=== PATIENT | male | born 2005 | race Caucasian/White ===

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

== ENCOUNTER 2023-01-01 06:00 | Outpatient (RCR) | payer MEDICAID, SELFPAY | END 2023-01-30 23:59 | disposition home or self-care (01) | LOC: SPO 06:00 | PROVIDERS: PCP Family Medicine; Visit Provider Nurse Practitioner | DX: R27.0 Ataxia, unspecified (principal) | CPT/HCPCS: 97110; 97530; 97535 ==

== ENCOUNTER 2023-01-31 06:00 | Outpatient (RCR) | payer MEDICAID, SELFPAY | END 2023-03-02 23:59 | disposition home or self-care (01) | LOC: SPO 06:00 | PROVIDERS: PCP Family Medicine; Visit Provider Nurse Practitioner | DX: R27.0 Ataxia, unspecified (principal) | CPT/HCPCS: 97110; 97530 ==

== ENCOUNTER 2023-03-10 16:21 | Outpatient (RCR) | payer MEDICAID, SELFPAY | END 2023-04-01 23:59 | disposition home or self-care (01) | LOC: SPO 16:21 | PROVIDERS: PCP Family Medicine; Visit Provider Nurse Practitioner | DX: R27.0 Ataxia, unspecified (principal) | CPT/HCPCS: 97110; 97530; 97535 ==

== ENCOUNTER 2023-04-02 06:00 | Outpatient (RCR) | payer MEDICAID, SELFPAY | END 2023-05-02 23:59 | disposition home or self-care (01) | LOC: SPO 06:00 | PROVIDERS: PCP Family Medicine; Visit Provider Nurse Practitioner | DX: R27.0 Ataxia, unspecified (principal) | CPT/HCPCS: 97110; 97530; 97535 ==

== ENCOUNTER 2023-05-03 06:00 | Outpatient (RCR) | payer MEDICAID, SELFPAY | END 2023-06-02 23:59 | disposition home or self-care (01) | LOC: SPO 06:00 | PROVIDERS: Visit Provider Nurse Practitioner | DX: R27.0 Ataxia, unspecified (principal); R29.898 Other symptoms and signs involving the musculoskeletal system | CPT/HCPCS: 97110; 97530; 97535 ==

== ENCOUNTER 2023-05-23 06:00 | Outpatient (RCR) | payer MEDICAID, SELFPAY | END 2023-06-02 23:59 | disposition home or self-care (01) | LOC: TST 06:00 | PROVIDERS: Visit Provider Family Medicine | DX: F81.89 Other developmental disorders of scholastic skills (principal); F80.89 Other developmental disorders of speech and language | CPT/HCPCS: 92523 ==

== ENCOUNTER 2023-06-03 06:00 | Outpatient (RCR) | payer MEDICAID, SELFPAY | END 2023-07-02 23:59 | disposition home or self-care (01) | LOC: TST 06:00 | PROVIDERS: Visit Provider Family Medicine | DX: F81.89 Other developmental disorders of scholastic skills (principal) | CPT/HCPCS: 92507 ==

== ENCOUNTER 2023-06-03 06:00 | Outpatient (RCR) | payer MEDICAID, SELFPAY | END 2023-07-02 23:59 | disposition home or self-care (01) | LOC: SPO 06:00 | PROVIDERS: Visit Provider Nurse Practitioner | DX: G80.8 Other cerebral palsy (principal); R26.89 Other abnormalities of gait and mobility | CPT/HCPCS: 97110; 97530 ==

== ENCOUNTER 2023-07-03 06:00 | Outpatient (RCR) | payer MEDICAID, SELFPAY | END 2023-08-02 23:59 | disposition home or self-care (01) | LOC: SPO 06:00 | PROVIDERS: Visit Provider Nurse Practitioner | DX: G80.8 Other cerebral palsy (principal) | CPT/HCPCS: 97110; 97530; 97535 ==

== ENCOUNTER 2023-07-03 06:00 | Outpatient (RCR) | payer MEDICAID, SELFPAY | END 2023-08-02 23:59 | disposition home or self-care (01) | LOC: TST 06:00 | PROVIDERS: Visit Provider Family Medicine | DX: F81.89 Other developmental disorders of scholastic skills (principal) | CPT/HCPCS: 92507 ==

== ENCOUNTER 2023-08-03 06:00 | Outpatient (RCR) | payer MEDICAID, SELFPAY | END 2023-09-01 23:59 | disposition home or self-care (01) | LOC: SPO 06:00 | PROVIDERS: Visit Provider Nurse Practitioner | DX: G80.8 Other cerebral palsy (principal) | CPT/HCPCS: 97530 ==

== ENCOUNTER 2023-08-03 06:00 | Outpatient (RCR) | payer MEDICAID, SELFPAY | END 2023-09-01 23:59 | disposition home or self-care (01) | LOC: TST 06:00 | PROVIDERS: Visit Provider Family Medicine | DX: F80.9 Developmental disorder of speech and language, unspecified (principal); F81.89 Other developmental disorders of scholastic skills | CPT/HCPCS: 92507 ==

== ENCOUNTER 2023-09-02 06:00 | Outpatient (RCR) | payer MEDICAID, SELFPAY | END 2023-10-02 23:59 | disposition home or self-care (01) | LOC: TST 06:00 | PROVIDERS: Visit Provider Family Medicine | DX: F81.89 Other developmental disorders of scholastic skills (principal); F80.9 Developmental disorder of speech and language, unspecified | CPT/HCPCS: 92507; 92607; 92608 ==

== ENCOUNTER 2023-11-07 09:39 | Outpatient (RCR) | payer MEDICAID, SELFPAY | END 2023-12-01 23:59 | disposition home or self-care (01) | LOC: TST 09:39 | PROVIDERS: Visit Provider Family Medicine | DX: F80.9 Developmental disorder of speech and language, unspecified (principal); F81.9 Developmental disorder of scholastic skills, unspecified | CPT/HCPCS: 92507 ==

== ENCOUNTER 2023-12-02 06:00 | Outpatient (RCR) | payer MEDICAID, SELFPAY | END 2024-01-01 23:59 | disposition home or self-care (01) | LOC: TST 06:00 | PROVIDERS: Visit Provider Family Medicine | DX: F80.9 Developmental disorder of speech and language, unspecified (principal); F81.89 Other developmental disorders of scholastic skills | CPT/HCPCS: 92507 ==

== ENCOUNTER 2023-12-26 06:00 | Outpatient (RCR) | payer MEDICAID, SELFPAY | END 2024-01-01 23:59 | disposition home or self-care (01) | LOC: TPT 06:00 | PROVIDERS: Visit Provider Family Medicine | DX: R29.898 Other symptoms and signs involving the musculoskeletal system (principal) | CPT/HCPCS: 97161 ==

== ENCOUNTER 2024-01-02 06:00 | Outpatient (RCR) | payer MEDICAID, SELFPAY | END 2024-01-31 23:59 | disposition home or self-care (01) | LOC: TPT 06:00 | PROVIDERS: Visit Provider Family Medicine | DX: M62.81 Muscle weakness (generalized) (principal) | CPT/HCPCS: 97530 ==

== ENCOUNTER 2024-01-02 06:00 | Outpatient (RCR) | payer MEDICARE, MEDICAID, SELFPAY | END 2024-01-31 23:59 | disposition home or self-care (01) | LOC: TST 06:00 | PROVIDERS: Visit Provider Family Medicine | DX: F81.89 Other developmental disorders of scholastic skills (principal); F80.9 Developmental disorder of speech and language, unspecified | CPT/HCPCS: 92507 ==

== ENCOUNTER 2024-01-25 17:19 | Emergency (ER) | payer MEDICAID, SELFPAY ==
--- NOTE | 2024-01-25 17:24 | PC.NURSE ---
obtaining consent from guardian before continuing process with treatment
[2024-01-25 17:33] VITALS: BP 104/68; PULSE 73; RESP 16; TEMP 36.6; O2SAT 98
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
[2024-01-25 19:00] VITALS: PULSE 72; RESP 16; O2SAT 99
== END 2024-01-25 19:02 | disposition home or self-care (01) ==
PROVIDERS: Emergency Provider Nurse Practitioner Family
DX: S80.01XA Contusion of right knee, initial encounter (principal); V09.09XA Pedestrian injured in nontraffic accident involving other motor vehicles, initial encounter; Y92.481 Parking lot as the place of occurrence of the external cause
CPT/HCPCS: 73562; 99283

== ENCOUNTER 2024-02-01 06:00 | Outpatient (RCR) | payer MEDICAID, SELFPAY | END 2024-03-02 23:59 | disposition home or self-care (01) | LOC: TST 06:00 | PROVIDERS: Visit Provider Family Medicine | DX: F80.9 Developmental disorder of speech and language, unspecified (principal); F81.89 Other developmental disorders of scholastic skills | CPT/HCPCS: 92507 ==

== ENCOUNTER 2024-03-03 06:00 | Outpatient (RCR) | payer MEDICARE, MEDICAID, SELFPAY | END 2024-04-01 23:59 | disposition home or self-care (01) | LOC: TPT 06:00 | PROVIDERS: PCP Family Medicine; Visit Provider Family Medicine | DX: R53.1 Weakness (principal) | CPT/HCPCS: 97530 ==

== ENCOUNTER 2024-03-03 06:00 | Outpatient (RCR) | payer MEDICARE, MEDICAID, SELFPAY | END 2024-04-01 23:59 | disposition home or self-care (01) | LOC: TST 06:00 | PROVIDERS: PCP Family Medicine; Visit Provider Family Medicine | DX: F81.89 Other developmental disorders of scholastic skills (principal); F80.9 Developmental disorder of speech and language, unspecified | CPT/HCPCS: 92507 ==

== ENCOUNTER 2024-04-02 06:00 | Outpatient (RCR) | payer MEDICARE, MEDICAID, SELFPAY | END 2024-05-02 23:59 | disposition home or self-care (01) | LOC: TST 06:00 | PROVIDERS: PCP Family Medicine; Visit Provider Family Medicine | DX: F81.89 Other developmental disorders of scholastic skills (principal) | CPT/HCPCS: 92507 ==

== ENCOUNTER 2024-04-02 06:00 | Outpatient (RCR) | payer MEDICARE, MEDICAID, SELFPAY | END 2024-05-02 23:59 | disposition home or self-care (01) | LOC: TPT 06:00 | PROVIDERS: PCP Family Medicine; Visit Provider Family Medicine | DX: R53.1 Weakness (principal) | CPT/HCPCS: 97110; 97530 ==

== ENCOUNTER 2024-05-03 06:00 | Outpatient (RCR) | payer MEDICARE, MEDICAID, SELFPAY | END 2024-06-02 23:59 | disposition home or self-care (01) | LOC: TST 06:00 | PROVIDERS: PCP Family Medicine; Visit Provider Family Medicine | DX: F80.89 Other developmental disorders of speech and language (principal); F81.89 Other developmental disorders of scholastic skills | CPT/HCPCS: 92507 ==

== ENCOUNTER 2024-05-03 06:00 | Outpatient (RCR) | payer MEDICARE, MEDICAID, SELFPAY | END 2024-06-02 23:59 | disposition home or self-care (01) | LOC: TPT 06:00 | PROVIDERS: PCP Family Medicine; Visit Provider Family Medicine | DX: R29.898 Other symptoms and signs involving the musculoskeletal system (principal) | CPT/HCPCS: 97110; 97530 ==

== ENCOUNTER → 2024-05-03 10:34 | Outpatient (BNVA) | payer MEDICARE, MEDICAID, SELFPAY | PROVIDERS: PCP Family Medicine; Visit Provider Family Medicine | DX: F43.10 Post-traumatic stress disorder, unspecified (principal); F41.9 Anxiety disorder, unspecified; F84.0 Autistic disorder; Z79.899 Other long term (current) drug therapy; M62.838 Other muscle spasm | CPT/HCPCS: 80053; 80164; 83036; 85025 ==

== ENCOUNTER 2024-06-03 06:00 | Outpatient (RCR) | payer MEDICARE, MEDICAID, SELFPAY | END 2024-07-02 23:59 | disposition home or self-care (01) | LOC: TPT 06:00 | PROVIDERS: PCP Family Medicine; Visit Provider Family Medicine | DX: R29.898 Other symptoms and signs involving the musculoskeletal system (principal) | CPT/HCPCS: 97530 ==

== ENCOUNTER 2024-06-03 06:00 | Outpatient (RCR) | payer MEDICARE, MEDICAID, SELFPAY | END 2024-07-02 23:59 | disposition home or self-care (01) | LOC: TST 06:00 | PROVIDERS: PCP Family Medicine; Visit Provider Family Medicine | DX: F81.89 Other developmental disorders of scholastic skills (principal) | CPT/HCPCS: 92507 ==

== ENCOUNTER 2024-07-03 06:30 | Outpatient (RCR) | payer MEDICARE, MEDICAID, SELFPAY | END 2024-08-02 23:59 | disposition home or self-care (01) | LOC: TST 06:30 | PROVIDERS: Visit Provider Family Medicine | DX: F81.89 Other developmental disorders of scholastic skills (principal) | CPT/HCPCS: 92507 ==

== ENCOUNTER 2024-07-03 06:30 | Outpatient (RCR) | payer MEDICARE, MEDICAID, SELFPAY | END 2024-08-02 23:59 | disposition home or self-care (01) | LOC: TPT 06:30 | PROVIDERS: Visit Provider Family Medicine | DX: R29.898 Other symptoms and signs involving the musculoskeletal system (principal) | CPT/HCPCS: 97116; 97530 ==

== ENCOUNTER 2024-08-03 06:00 | Outpatient (RCR) | payer MEDICARE, MEDICAID, SELFPAY | END 2024-09-01 23:59 | disposition home or self-care (01) | LOC: TPT 06:00 | PROVIDERS: Visit Provider Family Medicine | DX: R29.898 Other symptoms and signs involving the musculoskeletal system (principal) | CPT/HCPCS: 97110; 97530 ==

== ENCOUNTER 2024-08-03 06:00 | Outpatient (RCR) | payer MEDICARE, MEDICAID, SELFPAY | END 2024-09-01 23:59 | disposition home or self-care (01) | LOC: TST 06:00 | PROVIDERS: Visit Provider Family Medicine | DX: F81.89 Other developmental disorders of scholastic skills (principal); F80.89 Other developmental disorders of speech and language | CPT/HCPCS: 92507 ==

== ENCOUNTER 2024-09-02 06:00 | Outpatient (RCR) | payer MEDICARE, MEDICAID, SELFPAY | END 2024-10-02 23:59 | disposition home or self-care (01) | LOC: TST 06:00 | PROVIDERS: Visit Provider Family Medicine | DX: F81.89 Other developmental disorders of scholastic skills (principal) | CPT/HCPCS: 92507 ==

== ENCOUNTER 2024-09-02 06:00 | Outpatient (RCR) | payer MEDICARE, MEDICAID, SELFPAY | END 2024-10-02 23:59 | disposition home or self-care (01) | LOC: TPT 06:00 | PROVIDERS: Visit Provider Family Medicine | DX: R29.898 Other symptoms and signs involving the musculoskeletal system (principal) | CPT/HCPCS: 97530 ==

== ENCOUNTER 2024-10-03 06:00 | Outpatient (RCR) | payer MEDICARE, MEDICAID, SELFPAY | END 2024-11-02 23:59 | disposition home or self-care (01) | LOC: TST 06:00 | PROVIDERS: Visit Provider Family Medicine | DX: F81.89 Other developmental disorders of scholastic skills (principal) | CPT/HCPCS: 92507 ==

== ENCOUNTER 2024-10-03 06:00 | Outpatient (RCR) | payer MEDICARE, MEDICAID, SELFPAY | END 2024-11-02 23:59 | disposition home or self-care (01) | LOC: TPT 06:00 | PROVIDERS: Visit Provider Family Medicine | DX: R29.898 Other symptoms and signs involving the musculoskeletal system (principal) | CPT/HCPCS: 97530 ==

== ENCOUNTER 2024-11-03 06:30 | Outpatient (RCR) | payer MEDICARE, MEDICAID, SELFPAY | END 2024-11-30 23:59 | disposition home or self-care (01) | LOC: TPT 06:30 | PROVIDERS: Visit Provider Family Medicine | DX: R29.898 Other symptoms and signs involving the musculoskeletal system (principal) | CPT/HCPCS: 97116; 97530 ==

== ENCOUNTER 2024-11-03 06:30 | Outpatient (RCR) | payer MEDICARE, MEDICAID, SELFPAY | END 2024-11-30 23:59 | disposition home or self-care (01) | LOC: TST 06:30 | PROVIDERS: Visit Provider Family Medicine | DX: F81.89 Other developmental disorders of scholastic skills (principal) | CPT/HCPCS: 92507 ==

== ENCOUNTER 2024-11-08 15:55 | Emergency (ER) | payer MEDICARE, MEDICAID, SELFPAY ==
[2024-11-08 16:23] VITALS: BP 99/66; PULSE 76; RESP 18; TEMP 36.7; O2SAT 94; BMI 25.6
--- NOTE | 2024-11-08 18:11 | ED_ITS ---
HPI - Head Injury General: Chief complaint: Head Injury Stated complaint: fall hit head Time Seen by Provider: 11/08/24 17:50 Source: other (caregiver) Mode of arrival: ambulatory Limitations: no limitations History of Present Illness: Patient is a 18-year-old male with a past medical history of cerebral palsy presents the emergency department with a head injury. Patient from living facility, staff is present states that she brought him here as protocol. Patient reportedly was walking today and fell hit his head. There is no reports of loss of consciousness. No vomiting, no seizure-like activity, no issues with ambulation, no other concerning neurological symptoms reported at this time. Patient not on blood thinner. No other injuries noted. This reportedly occurred at about 1300 this afternoon. Patient does not provide any review of systems secondary to his cerebral palsy. MD Complaint: head injury Onset (ago): hour(s) Mechanism of Injury: fall Loss of Consciousness: no Location of injury: other (Unknown) Related Data Home Medications ?Medication ?Instructions ?Recorded ?Confirmed chlorpheniramine maleate 4 mg 4 mg PO Q8H PRN 09/02/21 08/29/24 tablet (Aller-Chlor) docusate sodium 100 mg capsule 200 mg PO DAILY PRN 10/2308/29/24 ondansetron HCl 4 mg tablet 4 mg PO Q6H PRN nausea and vomiting 09/02/21 08/29/24 Previous Rx's ?Medication ?Instructions ?Recorded Lip balm #1 ea 12/09/21 left ASO foot brace #1 ea 01/11/22 Z Vibe #1 ea 10/06/22 Left Aso brace #1 ea 03/21/23 Bilateral AFO braces #2 ea 02/15/24 bug spray 1 spray as directed DIREC JEROMY #1 03/29/24 Can sunblock 1 spray as directed DIREC JEROMY 03/29/24 sun exposure #1 Can chlorpheniramine 4 See Rx Instructions .Route 0 05/08/24 mg-phenylephrine 10 mg-DM 15 mg/5 .COMPLEX #200 mL mL oral liquid (NoHist-DM) ibuprofen 200 mg tablet 400 mg (2 x 200 mg) PO Q4H P RN 06/26/24 fever or pain #60 tabs diazepam 5 mg tablet (Valium) 5 mg PO ONCE PRN anxiety #1 tab 07/05/24 carbamide peroxide 6.5 % ear drops 5 drp otic (ear) DA YESENIA 4 days #15 08/23/24 (Debrox) mL buspirone 5 mg tablet See Rx Instructions .Route 1 11/20/23 .COMPLEX #93 tabs baclofen 20 mg tablet See Rx Instructions .Route 1 11/22/23 .COMPLEX #90 tabs melatonin 5 mg tablet See Rx Instructions .Route 1 11/25/23 .COMPLEX #2 tabs fluoxetine 40 mg capsule See Rx Instructions .Route 1 11/28/23 .COMPLEX #30 caps hydroxyzine HCl 25 mg tablet See Rx Instructions .Rout e 10/22/24 .COMPLEX #90 tabs topiramate 25 mg tablet See Rx Instructions .Route 0 10/22/24 .COMPLEX #30 tabs Allergies Allergy/AdvReac Type Severity Reaction Status Date / Time nortriptyline Allergy Severe ADR-Seizure Uncoded 11/08/24 16:30 Review of Systems General: Reports: ROS unobtainable due to medical condition PFSH ED PFSH: Surgical History No pertinent past surgical history Social History Smoking and tobacco/nicotine status: never used tobacco/nicotine Second hand smoke exposure: No Alcohol intake: never Substance/Drug Use: never Current gender identity: Male Special bridgette needs: No Physical Exam Const: COMMON NORMALS: alert EXAM LIMITATIONS: physical limitations ORIENTATION/CONSCIOUSNESS: Yes awake OTHER: No focal neurological deficit noted. Moves all extremities. Interactive with environment. HENMT: COMMON NORMALS: normocephalic and atraumatic HEAD & SCALP: normocephalic and atraumatic; no Wolf's sign, no raccoon eyes and no scalp tenderness OTHER: No signs of face head or neck trauma. Eye: COMMON NORMALS: Equal, round and reactive pupils present, EOMs intact bilaterally and conjunctivae normal CONJUNCTIVA: Yes conjunctivae normal PUPIL: Yes Equal, round and reactive pupils present Neck/C-Spine: COMMON NORMALS: full ROM and no meningeal signs CERVICAL SPINE: Yes cervical ROM normal Resp: COMMON NORMALS: normal respiratory effort, No retractions, No use of accessory muscles and clear to auscultation bilaterally AUSCULTATION: clear to auscultation bilaterally Cardio: COMMON NORMALS: regular rate, regular rhythm, No gallops present (Cardio), No murmurs present (Cardio) and No rub (Cardio) RATE: regular rate RHYTHM: regular rhythm Extremity: COMMON NORMALS: normal to inspection and full ROM Neuro: COMMON NORMALS: moves all extremities, no focal motor deficits and no sensory deficits noted SENSORIUM/ORIENTATION: Yes alert MENINGEAL SIGNS: Yes no meningeal signs GAIT: Yes Normal gait present MOTOR EXAM: 5/5 motor strength present throughout, no tremor noted and Motor abnormalities not present Skin: COMMON NORMALS: no rashes or lesions noted GENERAL SKIN EXAM: no rashes or lesions noted Course Vital Signs: Vital signs: Vital Signs Temperature 98.0 F 11/08/24 16:23 Pulse Rate 76 11/08/24 16:23 Respiratory Rate 18 11/08/24 16:23 Blood Pressure 99/66 11/08/24 16:23 Pulse Oximetry 94 11/08/24 16:23 Oxygen Delivery Me thod Room Air 11/08/24 16:23 MDM - Head Injury Medcial Decision Making Patient reportedly fell living facility, associate faculty had stated that protocol was to bring patient here for evaluation. Neurologically, though this was limited with his cerebral palsy diagnosis, was intact I do not suspect any intracranial abnormalities. However I did do shared decision making with faculty, and she elects that she observe the patient at home and will bring back with any worsening. Patient will be discharged home I did not see any signs of head injury on exam. No radiology studies performed this visit Discharge Plan Discharge Patient Disposition: Home Clinical Impression: CHI (closed head injury) Condition: Stable Prescriptions: No Action docusate sodium 100 mg capsule 200 mg PO DAILY PRN ondansetron HCl 4 mg tablet 4 mg PO Q6H PRN (Reason: nausea and vomiting) chlorpheniramine maleate [Aller-Chlor] 4 mg tablet 4 mg PO Q8H PRN (DME) Lip balm See Rx Instructions .Route .MEDSUPPLY Qty: 1 5RF Rx Instructions: apply to lips as needed (DME) left ASO foot brace See Rx Instructions .Route .MEDSUPPLY Qty: 1 0RF Rx Instructions: As directed (DME) Left Aso brace See Rx Instructions .Route .MEDSUPPLY Qty: 1 0RF Rx Instructions: As directed Debrox 6.5 % drops 5 drp otic (ear) DAILY 4 Days Qty: 15 0RF (DME) Z Vibe See Rx Instructions .Route .MEDSUPPLY Qty: 1 0RF Rx Instructions: As directed (DME) Bilateral AFO braces See Rx Instructions .Route .MEDSUPPLY Qty: 2 0RF Rx Instructions: As directed bug spray 1 spray as directed DIRECTED Qty: 1 3RF sunblock 1 spray as directed DIRECTED Qty: 1 3RF NoHist-DM 4-10-15 mg/5 mL liquid See Rx Instructions .ROUTE .COMPLEX Qty: 200 0RF Dose Instruction: take 5ml BY MOUTH EVERY 6 HOURS NEEDED FOR allergy symptoms Rx Instructions: take 5ml BY MOUTH EVERY 6 HOURS NEEDED FOR allergy symptoms ibuprofen 200 mg tablet 400 mg PO Q4H PRN (Reason: fever or pain) Qty: 60 3RF diazepam [Valium] 5 mg tablet 5 mg PO ONCE PRN (Reason: anxiety) Qty: 1 0RF buspirone 5 mg tablet See Rx Instructions .ROUTE .COMPLEX Qty: 93 2RF Dose Instruction: TAKE ONE TABLET BY MOUTH THREE TIMES DAILY Rx Instructions: TAKE ONE TABLET BY MOUTH THREE TIMES DAILY baclofen 20 mg tablet See Rx Instructions .ROUTE .COMPLEX Qty: 90 2RF Dose Instruction: TAKE ONE TABLET BY MOUTH THREE TIMES DAILY Rx Instructions: TAKE ONE TABLET BY MOUTH THREE TIMES DAILY melatonin 5 mg tablet See Rx Instructions .ROUTE .COMPLEX Qty: 2 0RF Dose Instruction: TAKE 2 TABLETS BY MOUTH EVERY NIGHT AT BEDTIME Rx Instructions: TAKE 2 TABLETS BY MOUTH EVERY NIGHT AT BEDTIME fluoxetine 40 mg capsule See Rx Instructions .ROUTE .COMPLEX Qty: 30 5RF Dose Instruction: TAKE ONE CAPSULE BY MOUTH DAILY Rx Instructions: TAKE ONE CAPSULE BY MOUTH DAILY topiramate 25 mg tablet See Rx Instructions .ROUTE .COMPLEX Qty: 30 0RF Dose Instruction: TAKE ONE TABLET BY MOUTH At Bedtime Rx Instructions: TAKE ONE TABLET BY MOUTH At Bedtime hydroxyzine HCl 25 mg tablet See Rx Instructions .ROUTE .COMPLEX Qty: 90 0RF Dose Instruction: TAKE 1 TABLET BY MOUTH THREE TIMES DAILY NEEDED ANXIETY Rx Instructions: TAKE 1 TABLET BY MOUTH THREE TIMES DAILY NEEDED ANXIETY Discharge Orders: Discharge ED (Routine); Ordered 11/08/24 Ordered By: Eleazar Kwon Patient Instructions: Head Injury (ED) Activity Restrictions/Additional Instructions: Monitor for any seizures, vomiting, severe changes in behavior, or other concerns you have and bring back to the ED immediately as we discussed. Follow- up with primary care routinely. Print Language: Montenegrin Coding Level of Care Code ED Software Computer Specialist for Roly Michael
== END 2024-11-08 18:26 | disposition home or self-care (01) ==
PROVIDERS: Emergency Provider Physician Assistant
DX: S09.8XXA Other specified injuries of head, initial encounter (principal); W19.XXXA Unspecified fall, initial encounter
CPT/HCPCS: 99281

== ENCOUNTER 2024-12-01 06:00 | Outpatient (RCR) | payer MEDICARE, MEDICAID, SELFPAY | END 2024-12-31 23:59 | disposition home or self-care (01) | LOC: TST 06:00 | PROVIDERS: PCP Nurse Practitioner Family; Visit Provider Family Medicine | DX: F84.0 Autistic disorder (principal); G80.9 Cerebral palsy, unspecified; R47.9 Unspecified speech disturbances | CPT/HCPCS: 92507 ==

== ENCOUNTER 2024-12-01 06:00 | Outpatient (RCR) | payer MEDICARE, MEDICAID, SELFPAY | END 2024-12-31 23:59 | disposition home or self-care (01) | LOC: TPT 06:00 | PROVIDERS: PCP Nurse Practitioner Family; Visit Provider Family Medicine | DX: M62.81 Muscle weakness (generalized) (principal) | CPT/HCPCS: 97110; 97116; 97530 ==

== ENCOUNTER 2025-01-01 05:00 | Outpatient (RCR) | payer MEDICARE, MEDICAID, SELFPAY | END 2025-01-30 23:59 | disposition home or self-care (01) | LOC: TPT 05:00 | PROVIDERS: PCP Nurse Practitioner Family; Visit Provider Family Medicine | DX: R29.898 Other symptoms and signs involving the musculoskeletal system (principal) | CPT/HCPCS: 97110 ==

== ENCOUNTER 2025-01-01 06:00 | Outpatient (RCR) | payer MEDICARE, MEDICAID, SELFPAY | END 2025-01-30 23:59 | disposition home or self-care (01) | LOC: TST 06:00 | PROVIDERS: PCP Nurse Practitioner Family; Visit Provider Family Medicine | DX: R47.9 Unspecified speech disturbances (principal); F84.0 Autistic disorder; G80.9 Cerebral palsy, unspecified | CPT/HCPCS: 92507 ==

== ENCOUNTER 2025-01-31 05:00 | Outpatient (RCR) | payer MEDICARE, MEDICAID, SELFPAY | END 2025-03-02 23:59 | disposition home or self-care (01) | LOC: TST 05:00 | PROVIDERS: PCP Nurse Practitioner Family; Visit Provider Family Medicine | DX: R47.9 Unspecified speech disturbances (principal) | CPT/HCPCS: 92507; 92523 ==

== ENCOUNTER 2025-01-31 06:00 | Outpatient (RCR) | payer MEDICARE, MEDICAID, SELFPAY | END 2025-03-02 23:59 | disposition home or self-care (01) | LOC: TPT 06:00 | PROVIDERS: PCP Nurse Practitioner Family; Visit Provider Family Medicine | DX: R29.898 Other symptoms and signs involving the musculoskeletal system (principal) | CPT/HCPCS: 97110 ==

== ENCOUNTER 2025-03-03 05:00 | Outpatient (RCR) | payer MEDICARE, MEDICAID, SELFPAY | END 2025-04-01 23:59 | disposition home or self-care (01) | LOC: TPT 05:00 | PROVIDERS: PCP Nurse Practitioner Family; Visit Provider Family Medicine | DX: R29.898 Other symptoms and signs involving the musculoskeletal system (principal) | CPT/HCPCS: 97110; 97530 ==

== ENCOUNTER 2025-03-03 05:00 | Outpatient (RCR) | payer MEDICARE, MEDICAID, SELFPAY | END 2025-04-01 23:59 | disposition home or self-care (01) | LOC: TST 05:00 | PROVIDERS: PCP Nurse Practitioner Family; Visit Provider Family Medicine | DX: F84.0 Autistic disorder (principal) | CPT/HCPCS: 92507 ==

== ENCOUNTER 2025-04-02 05:00 | Outpatient (RCR) | payer MEDICARE, MEDICAID, SELFPAY | END 2025-05-02 23:59 | disposition home or self-care (01) | LOC: TPT 05:00 | PROVIDERS: PCP Nurse Practitioner Family; Visit Provider Family Medicine | DX: R29.898 Other symptoms and signs involving the musculoskeletal system (principal) | CPT/HCPCS: 97110 ==

== ENCOUNTER 2025-04-02 05:00 | Outpatient (RCR) | payer MEDICARE, MEDICAID, SELFPAY | END 2025-05-02 23:59 | disposition home or self-care (01) | LOC: TST 05:00 | PROVIDERS: PCP Nurse Practitioner Family; Visit Provider Family Medicine | DX: F84.0 Autistic disorder (principal) | CPT/HCPCS: 92507 ==

== ENCOUNTER 2025-05-03 05:00 | Outpatient (RCR) | payer MEDICARE, MEDICAID, SELFPAY | END 2025-06-02 23:59 | disposition home or self-care (01) | LOC: TPT 05:00 | PROVIDERS: PCP Nurse Practitioner Family; Visit Provider Family Medicine | DX: R29.898 Other symptoms and signs involving the musculoskeletal system (principal) | CPT/HCPCS: 97110; 97530 ==

== ENCOUNTER 2025-05-03 06:30 | Outpatient (RCR) | payer MEDICARE, MEDICAID, SELFPAY | END 2025-06-02 23:59 | disposition home or self-care (01) | LOC: TST 06:30 | PROVIDERS: PCP Nurse Practitioner Family; Visit Provider Family Medicine | DX: F81.9 Developmental disorder of scholastic skills, unspecified (principal) | CPT/HCPCS: 92507 ==

== ENCOUNTER → 2025-05-06 10:15 | Outpatient (BNVA) | payer MEDICARE, MEDICAID, SELFPAY | PROVIDERS: PCP Nurse Practitioner Family; Visit Provider Nurse Practitioner Family | DX: F84.0 Autistic disorder (principal); Z79.899 Other long term (current) drug therapy | CPT/HCPCS: 80053; 80061; 83036; 84443; 85025 ==

== ENCOUNTER 2025-06-03 05:00 | Outpatient (RCR) | payer MEDICARE, MEDICAID, SELFPAY | END 2025-07-02 23:59 | disposition home or self-care (01) | LOC: TPT 05:00 | PROVIDERS: PCP Nurse Practitioner Family; Visit Provider Family Medicine | DX: R29.898 Other symptoms and signs involving the musculoskeletal system (principal) | CPT/HCPCS: 97110; 97530 ==

== ENCOUNTER 2025-06-03 05:00 | Outpatient (RCR) | payer MEDICARE, MEDICAID, SELFPAY | END 2025-07-02 23:59 | disposition home or self-care (01) | LOC: TST 05:00 | PROVIDERS: PCP Nurse Practitioner Family; Visit Provider Family Medicine | DX: F81.9 Developmental disorder of scholastic skills, unspecified (principal) | CPT/HCPCS: 92507 ==

== ENCOUNTER 2025-07-29 10:33 | Outpatient (RCR) | payer MEDICARE, MEDICAID, SELFPAY | END 2025-08-02 23:59 | disposition home or self-care (01) | LOC: TST 10:33 | PROVIDERS: PCP Nurse Practitioner Family; Visit Provider Family Medicine | DX: F84.0 Autistic disorder (principal) | CPT/HCPCS: 92507 ==

== ENCOUNTER 2025-07-29 11:25 | Outpatient (RCR) | payer MEDICARE, MEDICAID, SELFPAY | END 2025-08-02 23:59 | disposition home or self-care (01) | LOC: TPT 11:25 | PROVIDERS: PCP Nurse Practitioner Family; Visit Provider Family Medicine | DX: M62.81 Muscle weakness (generalized) (principal) | CPT/HCPCS: 97530 ==

== ENCOUNTER 2025-08-12 11:03 | Outpatient (RCR) | payer MEDICARE, MEDICAID, SELFPAY | END 2025-09-01 23:59 | disposition home or self-care (01) | LOC: TST 11:03 | PROVIDERS: PCP Nurse Practitioner Family; Visit Provider Family Medicine | DX: F80.89 Other developmental disorders of speech and language (principal) | CPT/HCPCS: 92507 ==

== ENCOUNTER 2025-08-26 11:00 | Outpatient (RCR) | payer MEDICARE, MEDICAID, SELFPAY | END 2025-09-01 23:59 | disposition home or self-care (01) | LOC: TPT 11:00 | PROVIDERS: PCP Nurse Practitioner Family; Visit Provider Family Medicine | DX: M62.81 Muscle weakness (generalized) (principal) | CPT/HCPCS: 97530 ==

== ENCOUNTER 2025-09-09 10:24 | Outpatient (RCR) | payer MEDICARE, MEDICAID, SELFPAY | END 2025-10-02 23:59 | disposition home or self-care (01) | LOC: TPT 10:24 | PROVIDERS: PCP Nurse Practitioner Family; Visit Provider Family Medicine | DX: M62.81 Muscle weakness (generalized) (principal) | CPT/HCPCS: 97530 ==

== ENCOUNTER 2025-09-30 11:02 | Outpatient (RCR) | payer MEDICARE, MEDICAID, SELFPAY | END 2025-10-02 23:59 | disposition home or self-care (01) | LOC: TST 11:02 | PROVIDERS: PCP Nurse Practitioner Family; Visit Provider Family Medicine | DX: R47.9 Unspecified speech disturbances (principal) | CPT/HCPCS: 92507 ==